=== PATIENT | male | born 1995 ===

== ENCOUNTER 2023-03-01 15:53 | Inpatient (IN) | payer OTHER, SELFPAY ==
[2023-03-01 16:29] VITALS: BMI 44.2
[2023-03-01 16:46] VITALS: BP 144/94; PULSE 88; RESP 18; TEMP 36.2; O2SAT 98
--- NOTE | 2023-03-01 17:58 | PC.ADMIT ---
Patient presents to the unit on a CV from [facility] where he was brought by EMS from the homeless intermediate where he had told staff that he was having suicidal ideation and did not feel he would be able to keep himself safe. Patient denies any physical complaints, denies current AVH but states that he has them quite often, denies HI. Patient was pleasant and cooperative with the admission process and engaged with staff. Skin check preformed with this RN and [facility] with no contraband found. Throughout the intake assessment the patient reinforced intent to seek out staff assistance if he feels unsafe and like he may hurt himself. Patient reports that his desire for self harm and suicidal ideation are a near constant in his life and that he suffers from a complete sense of hopelessness 2nd to his current state of homelessness.
[2023-03-01] MEDS: OLANZapine 5 MG TABLET PO (22:56)
[2023-03-01] MEDS: LORazepam 1 MG TABLET PO (23:40)
--- NOTE | 2023-03-01 23:43 | PC.NURSE ---
Patient spoke with this ghost writer at [phone] and said he could not contract for safety, Dr. Long notified and patient safety checks changed to 1:1 observation. Patient took a shower and was given a prn of Ativan 1 mg po as a one time order. Patient appears less distressed with a patient observer.
[2023-03-02 08:05] VITALS: BP 119/69; PULSE 84; RESP 18; TEMP 36.7; O2SAT 95
[2023-03-02 08:42] LABS: Cholesterol 161 mg/dL; HDL Cholesterol 27 mg/dL; LDL Cholesterol Calculated 116 mg/dl; Triglycerides 91 mg/dL
[2023-03-02 08:58] LABS: Estimated Average Glucose 85 mg/dL; Hemoglobin A1c % 4.6 %
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
[2023-03-02] MEDS: ARIPiprazole 2 MG TABLET PO (14:18)
--- NOTE | 2023-03-02 15:54 | MHC.EVENTN ---
Pt signed 3-day notice today 03/02, will be up on Wednesday 03/07.
[2023-03-02 18:00] VITALS: RESP 16
[2023-03-03 07:00] VITALS: BMI 44.2
[2023-03-03 08:00] VITALS: BP 158/93; PULSE 76; RESP 18; TEMP 36.2; O2SAT 97
--- NOTE | 2023-03-03 09:49 | HO.PSYCHPN ---
Subjective Subjective Date of Service: 03/03/23 Reason For Visit: Major depressive disorder recurrent episode severe Interim History: Met with patient; discussed with team Patient signed a 3 day notice yesterday. He reports that he is feeling better and that suicidality has passed. He says that the low-dose Abilify 2 mg which he took yesterday made angry and intensified his emotions and that the littlest things set him off to an outburst. Patient is referring to how he went to the nurse's station banged on the windows and demanded discharge, then went signed a 3 day notice. Patient says that that emotional triggering resolved. He does not want any medication and continues to agree that therapy is what is needed most to help him through his struggles. Patient would also like to discharge tomorrow. Diagnostics Vital Signs (24Hr): Vital Signs - 24 hr 03/02/23 18:00 03/03/23 08:00 Temperature 97.1 F Pulse Rate 76 Respiratory Rate 16 18 Blood Pressure 158/93 H Pulse Oximetry 97 Oxygen Delivery Method Room Air BMI result Body Mass Index 44.2 Labs Labs: Laboratory Results - last 48 hr 03/02/23 03/02/23 07:52 07:52 Estimat Average Glucose 85 Hemoglobin A1c % 4.6 Triglycerides 91 Cholesterol 161 LDL Cholesterol, Calc 116 HDL Cholesterol 27 Medications Medications Current Medications Acetaminophen (Acetaminophen 325 Mg Tablet) 650 mg PO Q6H PRN PRN Reason: Headache/Pain Mild Scale (1-3) Al Hydroxide/Mg Hydroxide (Magnesium Hydrox/Alum Hydrox 30 Ml Oral.Susp) 30 ml PO Q6H PRN PRN Reason: Heartburn/Nausea Aripiprazole (Aripiprazole 2 Mg Tablet) 2 mg PO DAILY [facility] Last Admin: 03/03/23 08:28 Dose: Not Given Hydroxyzine HCl (Hydroxyzine Hcl 50 Mg Tablet) 50 mg PO Q6H PRN PRN Reason: Anxiety Magnesium Hydroxide (Milk Of Magnesia 30 Ml Oral.Susp) 30 ml PO DAILY PRN PRN Reason: Constipation Nicotine (Nicotine 21 Mg Patch.Td24) 21 mg TRANSDERMA DAILY PRN PRN Reason: smoking cessation Nicotine Polacrilex (Nicotine Polacrilex 2 Mg Gum) 4 mg BUCCAL Q2H PRN PRN Reason: Nicotine Cravings Olanzapine (Olanzapine 5 Mg Tablet) 5 mg PO TID PRN PRN Reason: agitation/AVH Last Admin: 03/01/23 22:56 Dose: 5 mg Trazodone HCl (Trazodone Hcl 50 Mg Tablet) 50 mg PO BEDTIME MRX1 PRN PRN Reason: Insomnia Allergies Allergies Allergy/AdvReac Type Severity Reaction Status Date / Time bee pollen [bee stings] Allergy Anaphylaxis Verified 03/01/23 16:31 lavender (Lavandula Allergy Anaphylaxis Verified 03/01/23 16:31 angustifolia) seafood Allergy Anaphylaxis Verified 03/01/23 16:31 shellfish derived Allergy Anaphylaxis Verified 03/01/23 16:31 Assessment & Plan Assessment & Plan (1) MDD (major depressive disorder), recurrent episode, severe: Status: Acute Code(s): F33.2 - Major depressive disorder, recurrent severe without psychotic features (2) PTSD (post-traumatic stress disorder): Status: Acute Code(s): F43.10 - Post-traumatic stress disorder, unspecified (3) Borderline personality disorder: Status: Acute Code(s): F60.3 - Borderline personality disorder Plan Pt is a 27 yo male with hx of depression, Borderline personality disorder, chronic SI, PTSD and reporting of AVH who presents for depression and vague SI. Patient says that no one in my whole life as ever cared for may. Patient reports that he was recently discharged from [facility] where he was doing overall okay and after discharge he was stable, within okay mood and no SI. Two days later however Patient shares that his girlfriend of 3 years recently ended their relationship, saying she had a neurological injury and has for gotten about the details about their relationship and does not want to pursue it any longer. Patient said this triggered his BPD and he felt suicidal so self presented. Patient reports a myriad of symptoms including AH that says he is worthless and visual hallucinations of distorted figures that he can see as clearly as this underwriter mortgage loan; he says it is constant and points to all the different places where he is currently seeing distorted figures. Patient says he has schizophrenia, bipolar disorder, PTSD, social anxiety disorder, dissociative disorder borderline personality disorder OCD.... He says he has had a AVH since he was 6 years old. Patient has no history of manic episodes or behaviors; when he explains the details it is clear he is just having a triggered, situational, emotional reaction that resolves on its own after minutes to an hour, in the past by superficial cutting. Patient lists numerous medication trials saying none of them have ever helped with anything and that many of them cause worsening visual hallucinations or headache. Patient says he does not want to kill himself and wants to be safe in that he is trying to control his behaviors. He agrees to a trial of Abilify which she has never taken, it low-dose to see if he can help at all. He also agrees that he needs therapy which he has never had. Impression: Patient presents with depression and SI without a plan and the face of romantic relationship ending. Says he has never felt loved by anyone until this relationship and now that it is over he feels hopeless. That said he does not want to and is open to treatment. Given patient's reporting, underwriter mortgage loan doubts that patient has schizophrenia or bipolar disorder. Rather patient struggles with borderline personality disorder, PTSD and depression. Since SNRIs and SSRIs have never helped, underwriter mortgage loan is inclined to think that borderline personality disorder is the predominant struggle (with PtSD being strongly contributory). He says that over the years he has learned to cope with the AVH and now is overall able to be stable until his BPD gets triggered. Patient agrees that therapy is likely the most necessary to treat his illness. Hospital course 03/03 Patient signed a 3 day notice yesterday. He reports that he is feeling better and that suicidality has passed. He says that the low-dose Abilify 2 mg which he took yesterday made angry and intensified his emotions and that the littlest things set him off to an outburst. Patient is referring to how he went to the nurse's station banged on the windows and demanded discharge, then went signed a 3 day notice. Patient says that that emotional triggering resolved. He does not want any medication and continues to agree that therapy is what is needed most to help him through his struggles. Patient would also like to discharge tomorrow. -Patient does not want any further medication and agrees that therapy is his best option for treatment; he signed a 3 day notice saying he would like to leave. Although he did have an outburst yesterday evening, he was redirectable and it resolved on its own and he has remained in good behavioral and impulse control since. At baseline, patient struggles with bouts of emotional reactivity and chronic intermittent SI. While patient remains vulnerable to mood dysregulation and will again, likely at some point feel unsafe, this is a chronic issue that will not resolve with a longer stay on inpatient unit; rather it requires commitment to consistent outpatient therapy with which patient is eager to engage. Patient reports he has had 30-40 psychiatric hospitalizations and clearly demonstrates he is willing and able to reach out for help when feeling unsafe. Currently patient reports he is feeling better and denies any SI. Request for discharge honored Plan: Three day notice Q 15 minute DC Abilify: Patient said it was activating Help with aftercare Patient educated on: diagnosis, medication risk/benefits and therapeutic strategies Informed Consent: understands Reason for continued inpatient stay Substantial Risk for: stable for discharge Time Spent With Patient Time: Total time managing care of this patient today ____ minutes.
[2023-03-03] MEDS: Throat Lozenge, Medicated LOZENGE 1 LOZENGE MUCOUS MEM (13:19)
[2023-03-03] MEDS: Pseudoephedrine HCL 30 MG TABLET PO (16:24)
[2023-03-03 16:31] VITALS: BP 145/83; PULSE 76; RESP 18; TEMP 36.1; O2SAT 98
[2023-03-04 08:18] VITALS: BP 119/72; PULSE 67; RESP 16; TEMP 36.7; O2SAT 97
[2023-03-04] MEDS: Pseudoephedrine HCL 30 MG TABLET PO (08:56)
--- NOTE | 2023-03-04 09:44 | P.DS_ITS ---
DS: Providers Provider Date of Service: 03/04/23 Date of admission: 03/01/23 15:53 Date of discharge: 03/04/23 Primary care physician: Unknown Physician Attending physician on admission: Polo Gann Consults: 03/01/23 16:46 Consult to Hospitalist Routine Comment: Consulting Provider: Hospitalist Reason For Exam: admission physical Attending physician on discharge: Polo Gann DS: Diagnosis Discharge Diagnosis (1) MDD (major depressive disorder), recurrent episode, severe: Status: Acute (2) PTSD (post-traumatic stress disorder): Status: Acute (3) Borderline personality disorder: Status: Acute DS: Medications Discharge Medications Home Medications: Home Medications Medication Instructions Recorded Confirmed No Known Home Meds 03/01/23 03/01/23 Mental Status Exam Mental Status Exam Narrative: Pt is alert and oriented; behavior is cooperative; can intermittently emotionally reactive and irritable, but otherwise friendly and calm; patient is not in distress; dressed in casual attire, unkempt but with adequate hygiene; mood is described as okay and affect congruent; eye contact appropriate; Speech is normal rate, volume and prosody and not pressured; no psychomotor agitation/retardation present; thought process is organized and goal directed; Thought content is on tx; otherwise pertinent to relevant topics and without any delusional content, paranoid ideations or grandiosity; denies any SI/HI. There is no evidence of perceptual disturbance. Patients insight and judgment appear intact. Data Data Completed and Pending Completed studies during hospitalization [Text1]: 03/02/23 03/02/23 07:52 07:52 Estimat Average Glucose 85 Hemoglobin A1c % 4.6 Triglycerides 91 Cholesterol 161 LDL Cholesterol, Calc 116 HDL Cholesterol 27 DS: Summary Hospital Course Hospital Course: Pt is a 27 yo male with hx of depression, Borderline personality disorder, chronic SI, PTSD? and reporting of AV who presents for depression and vague SI.? Patient says that no one in my whole life as ever cared for january. Patient reports that he was recently discharged from [facility] where he was doing overall okay and after discharge he was stable, within okay mood and no SI.? Two days later however Patient shares that his girlfriend of 3 years recently ended their relationship, saying she had a neurological injury and has for gotten about the details about their relationship and does not want to pursue it any longer.? Patient said this? triggered his BPD and he felt suicidal so self presented.? Patient reports a myriad of symptoms including AH that says he is worthless and visual hallucinations of distorted figures that he can see as c learly as this designer/writer; he says it is constant and points to all the different places where he is currently seeing distorted figures.? Patient says he has schizophrenia, bipolar disorder, PTSD, social anxiety disorder, dissociative disorder borderline personality disorder OCD....? He says he has had a AVH since he was 6 years old.? Patient has no history of manic episodes or behaviors; when he explains the details it is clear he is just having a triggered, situational, emotional reaction that resolves on its own after minutes to an hour, in the past by superficial cutting.? Patient lists numerous medication trials saying none of them have ever helped with anything and that many of them cause worsening visual hallucinations or headache.? Patient says he does not want to kill himself and wants to be safe in that he is trying to control his behaviors.? He agrees to a trial of Abilify which she has never taken, it low- dose to see if he can help at all.? He also agrees that he needs therapy which he has never had. Impression: Patient presents with depression and SI without a plan and the face of romantic relationship ending.? Says he has never felt loved by anyone until this relationship and now that it is over he feels hopeless.? That said he does not want to and is open to treatment.? Given patient's reporting, designer/writer doubts that patient has schizophrenia or bipolar disorder.? Rather patient struggles with borderline personality disorder, PTSD and depression.? Since SNRIs and SSRIs have never helped, designer/writer is inclined to think that borderline personality disorder is the predominant struggle (with PtSD being strongly contributory).? He says that over the years he has learned to cope with the AVH and now is overall able to be stable until his? BPD gets triggered.? Patient agrees that therapy is likely the most necessary to treat his illness. Hospital course 03/03 Patient signed a 3 day notice yesterday.? He reports that he is feeling better and that suicidality has passed.? He says that the low-dose Abilify 2 mg which he took yesterday made angry and intensified his emotions and that the littlest things set him off to an outburst.? Patient is referring to how he went to the nurse's station banged on the windows and demanded discharge, then went signed a 3 day notice.? Patient says that that emotional triggering resolved.? He does not want any medication and continues to agree that therapy is what is needed most to help him through his struggles.? Patient would also like to discharge tomorrow.? -Patient does not want any further medication and agrees that therapy is his best option for treatment; he signed a 3 day notice saying he would like to leave.? Although he did have an outburst yesterday evening, he was redirectable and it resolved on its own and he has remained in good behavioral and impulse control since.? At baseline, patient struggles with bouts of emotional reactivity and chronic intermittent SI.? While patient remains vulnerable to mood dysregulation and will again, likely at some point feel unsafe, this is a chronic issue that will not resolve with a longer stay on inpatient unit; rather it requires commitment to consistent outpatient therapy with which patient is eager to engage.? Patient reports he has had 30-40 psychiatric hospitalizations and clearly demonstrates he is willing and able to reach out for help when feeling unsafe.? Currently patient reports he is feeling better and denies any SI.? Request for discharge honored Time spent discussing smoking cessation with patient: 3 to 10 minutes Status at Discharge Functional status at discharge: independent ambulation Overall status at discharge: patient is back to baseline Time Spent with Patient Time attestation: Total time managing care of this patient today ____ minutes. Time spent: Less than 30 minutes Discharge Plan Discharge Anticipated Discharge Date/Time: 03/04/23 11:30 Patient Disposition: [facility] Discharge Diagnosis: Borderline Personality disorder; PtSD, MDD Referrals: [facility] [Other] - 03/11/23 10:00 am Physician,Unknown J [Primary Care Provider] - 1 Week (pt denies PCP; referred to [facility] [address] [facility] #[phone]) Discharge Medications: Continued No Known Home Meds Discharge Orders: Discharge Order (Routine); Ordered 03/04/23 Ordered By: Polo Gann Diet: Regular diet Activity on Discharge: As tolerated Stand Alone Forms: Patient Portal Discharge page, Community Support Care Plan Goals: Maintain mood and safe behaviors Take medications as prescribed Practice coping skills Continue with outpatient providers and reach out to them as needed Health Concerns: Mood stability and behaviors Plan of Treatment: Follow up with your outpatient providers regarding above concerns Assessment: Risk assessment at time of discharge:? Patient was interviewed prior to discharge and found to be fully oriented and without any SI or HI. Patient has insight and demonstrates good judgment in terms of wanting to pursue treatment. Patient is not in imminent risk of harm to self or others and has a safety plan that includes presenting to the closest ER or calling 911 if feeling unsafe.? Patient has been observed closely by nursing and unit staff throughout admission; patient has not engaged in any behaviors that suggest dangerousness to self or others and has demonstrated appropriate behaviors and impulse control Discharge Date/Time: 03/04/23 12:56
== END 2023-03-04 12:56 | disposition home or self-care (01) | DRG 751 ==
PROVIDERS: Admitting Provider Psychiatry & Neurology Psychiatry; Visit Provider Psychiatry & Neurology Psychiatry
DX: F33.2 Major depressive disorder, recurrent severe without psychotic features (principal); R45.851 Suicidal ideations; F43.10 Post-traumatic stress disorder, unspecified; F60.3 Borderline personality disorder
CPT/HCPCS: 36415; 80061; 83036

== ENCOUNTER → 2023-03-01 15:53 | Outpatient (BNV) | payer OTHER, SELFPAY | PROVIDERS: Admitting Provider Psychiatry & Neurology Psychiatry; Visit Provider Psychiatry & Neurology Psychiatry | DX: F33.2 Major depressive disorder, recurrent severe without psychotic features (principal); F43.11 Post-traumatic stress disorder, acute; F60.3 Borderline personality disorder | CPT/HCPCS: 99232; 99233 ==